=== PATIENT | female | born 1995 | race Hispanic/Latino ===

== ENCOUNTER 2019-02-08 01:45 | Emergency (ER) | END 2019-02-08 04:49 | disposition home or self-care (01) | LOC: ERS 01:45 | DX: F10.129 Alcohol abuse with intoxication, unspecified (principal) | CPT/HCPCS: 96360; 96361 ==

== ENCOUNTER 2019-12-16 20:37 | Emergency (ER) | payer BC | END 2019-12-16 21:44 | disposition home or self-care (01) | LOC: ERS 20:37 | DX: G51.0 Bell's palsy (principal) | CPT/HCPCS: 99284 ==